=== PATIENT | female | born 1970 | race Two or more races ===

== ENCOUNTER → 2019-07-10 | Emergency (ER) | payer OTHER ==
[~2019-07-10] VITALS: Ht 167.6 cm; Wt 61.2 kg
[~2019-07-10] MED LIST: IBU800 MG PO; Ketorolac 30mg Inj IM ONE; LIDODERM700 M1 TOPIC; Methocarbamol 750mg tab ORAL ONE; NKM; ROBAXIN-500MG ORAL
--- NOTE | 2019-07-10 14:27 | NUR ---
ED Nurse Note: Patient came into ER with a c/o back pain. Patient states that when she was at work and she was using the restroom and when she tried to get toilet paper she heard a pop in her back. Patient stated she was unable to walk after she was finished with using the restroom. Patient is aaox4, on room air, with stable vital signs.
[2019-07-10 14:30] VITALS: BP 104/70
--- NOTE | 2019-07-10 15:24 | Emergency Room Report ---
History of Present Illness General Chief Complaint: Back Pain-No Injury Source: Patient Present Illness HPI 49-year-old female with no significant past medical history here complaining of a 10 out of 10 low back pain that started suddenly at work today. Patient reports that she did not fall or injure herself however was bending forward to grab something is she may leave at this pain in the mid lumbar region. Denies any pain radiation, saddle paresthesia, tingling numbness, urinary or bowel incontinence. Reports that the pain is worse when sitting and when trying to stand up. Has not taken medication for pain. Denies all injuries, chest pain, shortness of breath, palpitation, no other associated symptoms. Allergies: Coded Allergies: No Known Allergies (Unverified , 07/10/19) Patient History Past Medical History: see triage record Past Surgical History: unable to obtain Pertinent Family History: none Now: No Immunizations: UTD Reviewed Nursing Documentation: PMH: Agreed; PSxH: Agreed Nursing Documentation-PMH Past Medical History: No Stated History Review of Systems All Other Systems: negative except mentioned in HPI Physical Exam Vital Signs Date Time Temp Pulse Resp B/P (MAP) Pulse Ox O2 Delivery O2 Flow Rate FiO2 07/10/19 14:22 98.2 67 18 104/70 (81) 96 Room Air Sp02 EP Interpretation: reviewed, normal General Appearance: no apparent distress, alert, GCS 15, non-toxic Head: normocephalic, atraumatic Eyes: bilateral eye normal inspection, bilateral eye PERRL ENT: hearing grossly normal, normal pharynx, no angioedema, normal voice Neck: full range of motion, supple/symm/no masses Respiratory: chest non-tender, lungs clear, normal breath sounds, no rhonchi, no retraction, no wheezing, speaking full sentences Cardiovascular #1: regular rate, rhythm, no edema, no murmur, normal capillary refill Gastrointestinal: normal bowel sounds, non tender, soft, non-distended, no guarding, no rebound Rectal: deferred Genitourinary: no CVA tenderness Musculoskeletal: back normal, decreased range of motion, no calf tenderness, pelvis stable, gait/station normal, non-tender Neurologic: alert, motor strength/tone normal, oriented x3, sensory intact, responsive, speech normal Psychiatric: judgement/insight normal, memory normal, mood/affect normal, no suicidal/homicidal ideation Skin: no rash Lymphatic: no adenopathy Medical Decision Making PA Attestation All my diagnosis and treatment plans were reviewed ad discussed with my supervising physician Dr. Pena Diagnostic Impression: Primary Impression: Low back strain ER Course 49-year-old female with no significant past medical history here complaining of a 10 out of 10 low back pain that started suddenly at work today. Patient reports that she did not fall or injure herself however was bending forward to grab something is she may leave at this pain in the mid lumbar region. Denies any pain radiation, saddle paresthesia, tingling numbness, urinary or bowel incontinence. Reports that the pain is worse when sitting and when trying to stand up. Has not taken medication for pain. Denies all injuries, chest pain, shortness of breath, palpitation, no other associated symptoms. Ddx considered but are not limited to: Lumbar spine sprain, strain, fracture, contusion, neuropathy Vital signs: are WNL, pt. is afebrile H&PE are most consistent with: Low back strain ORDERS: No x-ray necessary at this time patient did not fall or injure herself appears to be a strained muscle, Robaxin, ibuprofen 800, lidocaine patch ER intervention: Toradol, Robaxin, Lidoderm patch DISCHARGE: At this time pt. is stable for d/c to home. Will provide printed patient care instructions, and any necessary prescriptions. Care plan and follow up instructions have been discussed with the patient prior to discharge. Patient to follow-up with primary care provider, physical therapy may be beneficial, if worsening symptoms return to the emergency room. If developing symptoms such as numbness and tingling MRI is needed. Patient reports that she feels much better after lidocaine patch as well as Robaxin Toradol was administered. Requested a walker to walk with Last Vital Signs Date Time Temp Pulse Resp B/P (MAP) Pulse Ox O2 Delivery O2 Flow Rate FiO2 07/10/19 14:30 98.2 76 18 104/70 96 Room Air Disposition: HOME, SELF-CARE Condition: Stable Scripts Lidocaine Patch* (Lidoderm Patch*) 1 Each Adh..patch 1 PATCH TOPIC DAILY, #7 PATCH 0 Refills Patch(es) may remain in place for up to 12 hours in any 24-hour period. Prov: Samia Umanzor 07/10/19 Methocarbamol* (ROBAXIN-500*) 500 Mg Tablet 500 MG ORAL TID PRN for For Pain, #15 TAB 0 Refills Prov: Samia Umanzor 07/10/19 Ibuprofen (Ibu) 800 Mg Tablet 800 MG PO TID, #30 TAB Prov: Samia Umanzor 07/10/19 Patient Instructions: Back Pain, Adult Additional Instructions: Take medication as directed, follow-up with your primary care provider, avoid straining physical activity if worsening symptoms return to the emergency room. At this time no x-rays necessary as no fall or injury or back pain occurred as you are bending forward trying to lift something heavy. Samia Umanzor Jul 10, 2019 15:24
[2019-07-10 15:45] VITALS: BP 104/70
--- NOTE | 2019-07-10 15:45 | NUR ---
ER DISCHARGE NOTE: Patient is cleared to be discharged per LAW Gracia, pt is aox4, on room air, with stable vital signs. pt was given dc and prescription instructions, pt was able to verbalize understanding, pt id band removed without complications. pt is able to ambulate with steady gait. pt took all belongings.
== END | disposition home or self-care (01) ==
LOC: EMR 14:50
DX: S39.012A Strain of muscle, fascia and tendon of lower back, initial encounter (principal); X50.1XXA Overexertion from prolonged static or awkward postures, initial encounter; Y92.9 Unspecified place or not applicable; Y99.0 Civilian activity done for income or pay
CPT/HCPCS: 96372; 99283; J1885